=== PATIENT | female | born 1970 | race Two or more races ===

== ENCOUNTER 2024-05-08 11:45 | Inpatient (IN) | payer MEDICAID, OTHER ==
[~2024-05-08] VITALS: Ht 165.1 cm; Wt 77.0 kg
[~2024-05-08 11:45] MED LIST: ASPI81CH59 PO; ATEN-60 PO; ATOR10TA PO; HYDR12.55 PO; INSU1INJ19 SC; METF-371 PO; SEMA2INJ3 SC; SITA100T7 PO
--- NOTE | 2024-05-08 16:28 | ED.PDOC ---
History of Present Illness Chief Complaint: Facial Injury Time Seen by MD: 11:46 Mode of Arrival: Ambulatory Physical Exam General Appearance: Moderate Distress HEENT: Normal ENT Inspection, Pharynx Normal, TMs Normal Neck: Full Range of Motion, Non-Tender, Normal, Normal Inspection Respiratory: Chest Non-Tender, Lungs Clear, No Accessory Muscle Use, No Respiratory Distress, Normal Breath Sounds Cardiovascular: No Edema, No JVD, No Murmur, No Gallop, Normal Peripheral Pulses, Regular Rate/Rhythm Breast Exam: Deferred Gastrointestinal: No Organomegaly, Non Tender, No Pulsatile Mass, Normal Bowel Sounds, Soft Genitalia: Deferred Pelvic: Deferred Rectal: Deferred Extremities: No calf tenderness, Normal capillary refill, Normal inspection, Normal range of motion, Non-tender, No pedal edema Musculoskeletal : Apperance: Normal Neurologic: Alert, No Motor Deficits, No Sensory Deficits Cerebellar Function: NOT DONE Reflexes: NOT DONE Skin: Wounds (Right side of face) Peripheral Pulses: 3+ Radial (R), 3+ Radial (L) Lymphatic: No Adenopathy Was a procedure done? Was a procedure done?: No Differential Dx Considerations may include: Head injury Electrolyte imbalance X-Ray, Labs, Meds, VS Vital Signs Date Time Temp Pulse Resp B/P (MAP) Pulse Ox O2 Delivery O2 Flow Rate FiO2 05/08/24 12:49 98.1 96 18 150/105 (120) 96 Patient alert. Status post fall. Has wound on the face. Vitals stable. Answering all questions. Blood pressure elevated. Was given clonidine. Had symptoms prior to the fall. MRI. Neurology consultation. Explained to the patient. Continue cardiac monitoring. Time of 1ST Reevaluation: 16:26 Reevaluation 1ST: Unchanged Patient Education/Counseling: Diagnosis, Treatment, Prognosis, Need For Follow Up Family Education/Counseling: Need For Follow Up Departure 1 Departure Time of Disposition: 16:27 Impression: Primary Impression: Head injury Qualified Codes: S09.90XA - Unspecified injury of head, initial encounter Additional Impressions: Facial injury Qualified Codes: S09.93XA - Unspecified injury of face, initial encounter Hypertensive urgency Disposition: ADMITTED INPATIENT Admit to: Med Surg Condition: Guarded Critical Care Note Critical Care Time?: Yes (45 min-critical care time only) Critical care comment: Hypertensive head injury Stability Stability form required: No Heart Score Heart Score: Heart Score Response (Comments) Value History N/A 0 EKG N/A 0 Age N/A 0 Risk Factors N/A 0 Troponin N/A 0 Total 0 IESHA FLAHERTY MD May 08, 2024 16:28
--- NOTE | 2024-05-08 16:49 | DVH ---
CT HEAD WITHOUT CONTRAST INDICATION: fall EXAM DATE: 05/08/2024 04:24 PM COMPARISON: None RADIATION DOSE: CTDIvol: 53 mGy, DLP: 852 mGy*cm PROCEDURE: CT scans of the head were obtained from the vertex to the skull base. Sagittal and coronal reconstructions were provided. All CT scans at this medical facility are performed using dose modulation techniques as appropriate t o a performed exam including the following: Automated exposure control was utilized; adjustment of th e MA and/or KV according to patient size; and use of iterative reconstruction technique. FINDINGS: Increased gyri at the median right occipital lobe likely congenital. There is sulcal and ve ntricular prominence. The brain otherwise shows normal morphology and junior-white matter differentiati on, without intracranial hemorrhage, extra-axial fluid collection, mass effect or acute large vessel infarct. The ventricles are normal in size. The basal cisterns are patent. The skull and visible faci al bones are intact. The paranasal sinuses, mastoid air cells and middle ear cavities are well-aerate d. The soft tissues of the scalp are unremarkable. IMPRESSION: No acute intracranial abnormality.
[2024-05-08] MEDS: cloNIDine HCL 0.1 MG TAB PO ONE (16:59)
[2024-05-08 17:03] LABS: Basophils # (auto) 0 10 ^3/uL (0-0.2); Basophils % (auto) 0.6 % (0.0-2.0); Eosinophils # (auto) 0.1 10 ^3/uL (0-0.8); Eosinophils % (auto) 1.7 % (0.0-7.0); Hematocrit 46.6 % (36.0-46.0); Lymphocytes # (auto) 1.6 10 ^3/uL (0.4-5.4); Lymphocytes % (auto) 19.2 % (10.0-50.0); Mean Corpuscular Hemoglobin 29.2 pg (28.0-32.0); Mean Corpuscular Hgb Conc. 34.3 g/dL (32.0-36.0); Mean Corpuscular Volume 85.3 fL (80.0-100.0); Monocytes # (auto) 0.9 10 ^3/uL (0-1.3); Monocytes % (auto) 10.3 % (0.0-12.0); Neutrophils # (auto) 5.9 10 ^3/uL (1.6-8.6); Neutrophils % (auto) 68.2 % (37.0-80.0); Nucleated Red Blood Cells % 0.1 %; Platelet Count (auto) 235 10^3/uL (140-450); Red Blood Cells 5.46 10^6/uL (4.0-5.20); Red Cell Distribution Width 11.9 % (11.8-14.3); White Blood Cell 8.6 10^3/uL (4.4-10.8)
[2024-05-08] MEDS: HYDROcodone-ACET 5/325MG TAB PO ONE (17:06)
[2024-05-08 17:12] LABS: Anion Gap 8 (5-15); Carbon Dioxide 29 mmol/L (20-31)
[2024-05-08 17:17] LABS: BUN/Creatinine Ratio 8.5 (10.0-20.0)
[2024-05-08 17:25] LABS: Blood Urea Nitrogen 7 mg/dL (9-23); Calcium 10.8 mg/dL (8.7-10.4); Chloride 96 mmol/L (98-107); Glucose 205 mg/dL (74-106); Sodium 133 mmol/L (136-145)
[2024-05-08] MEDS ORDERED: ACETAMINOPHEN 325 MG TAB PO PRN (23:15)
--- NOTE | 2024-05-08 23:17 | DVHHPRES ---
History of Present Illness Resident Creating Document: JL NAJERA RESIDENT History of Present Illness Patient is a 54-year-old female with past medical history of diabetes and hypertension, who came s/p fall. According to the patient and granddaughter at bedside, around 10:00 a.m. this morning patient says she felt lightheadedness, lost her balance and fell where she hit her face against a low height concrete wall which resulted in a nosebleed. Subsequently patient's family called the paramedics and brought her to the hospital. Patient denies losing any consciousness, her own insight is that she got up too fast which led to the fall. Patient is A&O x4 at the time of my assessment. On review of systems, patient is complaining of fatigue, chills, rhinorrhea, sore throat and a productive cough. Head CT scan was largely unremarkable. Initial x-ray showed no displaced fractures. Past Medical History Diabetes, Hypertension Past Surgical History Cholecystectomy, section x3 Smoke: No ALCOHOL: none Drugs: None Lives: with Family Review of Systems Constitutional: Yes: Chills, Malaise; No: Fever, Sweats, Weakness, Other Eyes: No: Pain, Vision change, Conjunctivae inflammation, Eyelid inflammation, Other, Redness ENT: Nose discharge, Nose congestion, Throat pain; No: Ear pain, Ear discharge, Nose pain, Mouth pain, Mouth swelling, Throat swelling, Other Respiratory: Cough; No: Dry, Shortness of breath, SOB with excertion, Wheezing, Hemoptysis, Pleuritic Pain, Sputum, Wheezing, Other Cardiovascular: No: Chest Pain, Palpitations, Orthopnea, Paroxysmal Noc. Dyspnea, Edema, Lt Headedness, Other Gastrointestinal: No: Nausea, Vomiting, Abdominal Pain, Diarrhea, Constipation, Melena, Hematochezia, Other Genitourinary: No Dysuria, No Frequency, No Incontinence, No Hematuria, No Retention, No Other Musculoskeletal: No: other, neck pain, shoulder pain, arm pain, back pain, hand pain, leg pain, foot pain Skin: No: Rash, Lesions, Jaundice, Bruising, Other Neurological: No: Weakness, Numbness, Incoordination, Change in speech, Confus ion, Seizures, Other Allergies: Coded Allergies: No Known Drug Allergy (Verified Allergy, Unknown, 05/08/24) Exam Vital Signs Vital Signs Date Time Temp Pulse Resp B/P (MAP) Pulse Ox O2 Delivery O2 Flow Rate FiO2 05/08/24 19:50 89.5 92 16 144/91 (108) 97 89.5 05/08/24 16:31 Room Air General Appearance: Alert, Oriented X3, Cooperative HEENT: Atraumatic, PERRLA, EOMI Respiratory: Normal air movement Cardiovascular: Regular rate, Normal S1, Normal S2 Abdominal: Normal bowel sounds, Soft Extremities: No clubbing, No cyanosis Skin: No rashes, No breakdown, No significant lesion Neuro: Normal speech, Strength at 5/5 X4 ext, Sensation intact Psych/Mental Status: Mental status NL, Mood NL Labs/Xrays Labs Test 05/08/24 22:57 05/08/24 16:42 Range/Units POC Glucose 256 H 70-106 mg/dl White Blood Count 8.6 4.4-10.8 10^3/uL Red Blood Count 5.46 H 4.0-5.20 10^6/uL Hemoglobin 16.0 12.2-16.2 g/dL Hematocrit 46.6 H 36.0-46.0 % Mean Corpuscular Volume 85.3 80.0-100.0 fL Mean Corpuscular Hemoglobin 29.2 28.0-32.0 pg Mean Corpuscular Hemoglobin Concent 34.3 32.0-36.0 g/dL Red Cell Distribution Width 11.9 11.8-14.3 % Platelet Count 235 140-450 10^3/uL Mean Platelet Volume 8.3 6.9-10.8 fL Neutrophils (%) (Auto) 68.2 37.0-80.0 % Lymphocytes (%) (Auto) 19.2 10.0-50.0 % Monocytes (%) (Auto) 10.3 0.0-12.0 % Eosinophils (%) (Auto) 1.7 0.0-7.0 % Basophils (%) (Auto) 0.6 0.0-2.0 % Neutrophils # (Auto) 5.9 1.6-8.6 10 ^3/uL Lymphocytes # (Auto) 1.6 0.4-5.4 10 ^3/uL Monocytes # (Auto) 0.9 0-1.3 10 ^3/uL Eosinophils # (Auto) 0.1 0-0.8 10 ^3/uL Basophils # (Auto) 0 0-0.2 10 ^3/uL Nucleated Red Blood Cells 0.1 % Sodium Level 133 L 136-145 mmol/L Potassium Level 4.0 3.5-5.1 mmol/L Chloride Level 96 L 98-107 mmol/L Carbon Dioxide Level 29 20-31 mmol/L Anion Gap 8 5-15 Blood Urea Nitrogen 7 L 9-23 mg/dL Creatinine 0.82 0.550-1.02 mg/dL Glomerular Filtration Rate Calc 85 >90 mL/min BUN/Creatinine Ratio 8.5 L 10.0-20.0 Serum Glucose 205 H 74-106 mg/dL Calcium Level 10.8 H 8.7-10.4 mg/dL Assessment/Plan Assessment/Plan Presyncope s/p fall Nasal contusion with nosebleed, now stopped - head CT: No acute intracranial abnormality - facial bones x-ray: No radiopaque foreign body in the visualized orbits. No displaced fracture. Normal mineralization and alignment. Scattered maxillary and mandibular teeth have been removed. Overlying soft tissues are intact - acetaminophen 650 mg as needed - ordered carotid Doppler - orthostatic vital signs Type 2 diabetes, insulin dependent A1c 9% Hypertension - insulin Lantus 20 units q.p.m. - atorvastatin 10 mg - amlodipine 5 mg - moderate sliding scale insulin - consistent carb low carb diet DVT prophylaxis: SCDs Goals of care: Full code, discussed for >16 minutes on 10/17/23 Plan discussed with patient Plan discussed with Dr. Solorio Plan discussed with: Patient, Other (Granddaughter, RN) Date of Service: May 08, 2024 Billing Provider: CHESTER LAWSON MD Common Visit Codes: [id number] INP/OBS CARE (HIGH) JL NAJERA RESIDENT May 08, 2024 23:17 CHESTER LAWSON MD May 15, 2024 15:57
[2024-05-09] MEDS: ATORVASTATIN 20 MG TAB PO ONE (00:07)
[2024-05-09] MEDS: ATENOLOL 25 MG TAB PO ONE (00:09)
[2024-05-09] MEDS ORDERED: DEXTROSE (50%) 50ML SYRG IV PRN ×2 (00:15→04:15)
[2024-05-09 00:19] LABS: LDL Cholesterol 88 mg/dL (< 100)
[2024-05-09 00:20] LABS: Cholesterol 148 mg/dL (< 200); HDL Cholesterol 42 mg/dL (40-59)
[2024-05-09 00:21] LABS: Triglycerides 250 mg/dL (< 150)
[2024-05-09 00:25] LABS: Urine Bacteria FEW /hpf (None Seen); Urine Blood Negative /uL (Negative); Urine Clarity Clear (Clear); Urine Color Light-Yellow (Yellow); Urine Protein, UAD Negative (Negative); Urine Specific Gravity 1.008 (1.001-1.035); Urine Squamous Epithelial Cell FEW /hpf (<5); Urine Urobilinogen Normal (Negative); Urine WBC 8 /HPF (0-5)
[2024-05-09 00:27] LABS: Opiate Scree,Urine Neg (NEGATIVE)
[2024-05-09 00:40] LABS: Amphetamine Screen, Urine Neg (NEGATIVE); Barbiturate Scree,Urine Neg (NEGATIVE); Benzodiazephine Screen, Urine Neg (NEGATIVE); Cannabinoid Screen, Urine Neg (NEGATIVE); Cocaine Screen, Urine Neg (NEGATIVE); Phencyclidine Screen, Urine Neg (NEGATIVE)
[2024-05-09] MEDS: INSULIN LANTUS (GLARGINE) 1 /0.01ml (100units/ml) SC SCH (01:08)
--- NOTE | 2024-05-09 01:18 | DVH ---
CLINICAL INDICATION: Fall, facial pain TECHNIQUE: XY FACIAL BONES COMPLETE Comparison: CT head from 05/08/2024 FINDINGS/IMPRESSION: : No radiopaque foreign body in the visualized orbits. No displaced fracture. Normal mineralization and alignment. Scattered maxillary and mandibular teeth have been removed. Overlying soft tissues are intact
[2024-05-09 01:46] VITALS: PULSE 107; RESP 22; O2SAT 95
[2024-05-09 05:19] LABS: Basophils # (auto) 0 10 ^3/uL (0-0.2); Basophils % (auto) 0.6 % (0.0-2.0); Eosinophils # (auto) 0.2 10 ^3/uL (0-0.8); Eosinophils % (auto) 2.8 % (0.0-7.0); Hematocrit 41.3 % (36.0-46.0); Lymphocytes # (auto) 1.6 10 ^3/uL (0.4-5.4); Lymphocytes % (auto) 22.3 % (10.0-50.0); Mean Corpuscular Hemoglobin 29.1 pg (28.0-32.0); Mean Corpuscular Hgb Conc. 33.9 g/dL (32.0-36.0); Mean Corpuscular Volume 85.7 fL (80.0-100.0); Monocytes # (auto) 0.9 10 ^3/uL (0-1.3); Monocytes % (auto) 12.3 % (0.0-12.0); Neutrophils # (auto) 4.4 10 ^3/uL (1.6-8.6); Nucleated Red Blood Cells % 0.1 %; Platelet Count (auto) 197 10^3/uL (140-450); Red Blood Cells 4.82 10^6/uL (4.0-5.20); Red Cell Distribution Width 11.8 % (11.8-14.3); White Blood Cell 7.1 10^3/uL (4.4-10.8)
[2024-05-09 05:28] LABS: Anion Gap 10 (5-15); Carbon Dioxide 27 mmol/L (20-31); Chloride 98 mmol/L (98-107); Potassium 3.6 mmol/L (3.5-5.1)
[2024-05-09 05:29] LABS: Calcium 10.3 mg/dL (8.7-10.4)
[2024-05-09 05:34] LABS: BUN/Creatinine Ratio 15.4 (10.0-20.0); Blood Urea Nitrogen 10 mg/dL (9-23)
[2024-05-09 05:36] LABS: Glucose 196 mg/dL (74-106); Sodium 135 mmol/L (136-145)
[2024-05-09] MEDS ORDERED: InsuLIN REG 1unit/0.01ml Soln (100units/ml) SC SCH (06:00)
[2024-05-09] MEDS ORDERED: ACCU-CHEK COMFORT CURVE STRIP VI SCH (06:00)
[2024-05-09 07:31] VITALS: PULSE 110; RESP 15; O2SAT 94
[2024-05-09] MEDS: ACCU-CHEK COMFORT CURVE STRIP VI SCH (08:08)
[2024-05-09] MEDS: InsuLIN REG 1unit/0.01ml Soln (100units/ml) SC SCH (08:09)
[2024-05-09] MEDS: amLODIPine BESYLATE 5 MG TAB PO SCH (08:11)
[2024-05-09 09:35] VITALS: TEMP 98.2
[2024-05-09] MEDS ORDERED: ATENOLOL 25 MG TAB PO SCH (10:00)
[2024-05-09] MEDS: SODIUM CHLORIDE 0.9% 500 ML IV ONE ×2 (10:03→13:04)
--- NOTE | 2024-05-09 10:03 | DVH ---
CAROTID ARTERIAL DOPPLER CLINICAL HISTORY: presyncope TECHNIQUE: Doppler study of bilateral carotid/vertebral arteries were performed. Comparison: None FINDINGS: There are scattered nonocclusive atheromatous plaques throughout the bilateral common carotid arterie s, internal carotid arteries and carotid bulbs. The bilateral common carotid, external and internal c arotid arteries appear patent without hemodynamically significant stenosis. The spectral wave forms and peak systolic velocities are within normal limits. Antegrade flow is present within the vertebral arteries with appropriate velocities and waveforms. Right ICA/CCA PSV ratio = 1.2. Left ICA/CCA PSV ratio = 1.1 . IMPRESSION: 1. No hemodynamically significant stenosis within the carotid arteries. HS:Y
--- NOTE | 2024-05-09 11:03 | DVHSR ---
APPROVED REPORT EXAM: Two-dimensional and M-mode echocardiogram with Doppler and color Doppler. Blood Pressure: 138/94 mmHg INDICATION Presyncope RISK FACTORS Height: 5'5", Weight: 169 DIMENSIONS LVDd3.4 (3.8-5.7cm)LA (2D)4.7 (1.9-4.0cm)Aortic Root (2.0-3.7cm) LVDs2.3 (2.5-4.0cm)LA (MM) (1.9-4.0cm)Aortic Cusp Exc (1.5-2.0cm) EF (%) 75.0 (55-70%)Rt. Atrium (1.9-4.0cm)Asc. Aorta cm Mitral Valve MitralMitral Stenosis E/A ratio0.02D MVAcm2 Aortic Valve Aortic ValveAortic Stenosis V10.98m/Heron Mean GR.11mmHg V22.65m/Heron Peak GR.29mmHg LVOT Diameter2.0 (1.8-2.4cm)Doppler AVA1.16cm2 LEFT VENTRICLE The left ventricle is of normal size. Wall thickness is not well assessed. Ejection fraction is est imated at 75-80%. There is no regional wall motion abnormalities. Diastolic function is indetermina te. RIGHT VENTRICLE Not well visualized. ATRIA The left atrium is mildly dilated in size. Right atrium is not visualized. Intra-atrial septum is n ot well visualized. MITRAL VALVE Likely normal in structure and function. PULMONIC VALVE Not visualized. TRICUSPID VALVE Not well visualized. AORTIC VALVE Not well visualized. Likely normal function. GREAT VESSELS The aortic root and proximal ascending aorta not well visualized. PERICARDIAL EFFUSION No evidence of significant pericardial effusion. IVC is not visualized. Other Information Quality : Technically LimitedRhythm : Technically limited study due to body habitus and pt sitting up. Conclusion The study is very technically limited. Normal left ventricular size with hyperdynamic systolic function. Ejection fraction is estimated at 75-80%. There is mild mid cavitary dynamic obstruction of the left ventricle. The right ventricle is not visualized. Study is nondiagnostic to assess for valvular disease. PA systolic pressure isn't adequately estimated.
[2024-05-09 13:00] VITALS: BP 140/95; PULSE 94; RESP 18; O2SAT 97
--- NOTE | 2024-05-09 19:06 | DVHDSRES ---
Discharge Summary Date of Admission Resident Creating Document: DENIA ROSENBERG RESIDENT May 08, 2024 at 23:15 Date of Discharge: May 09, 2024 Admitting Diagnosis Presyncope s/p fall Nasal contusion with nosebleed, now stopped Type 2 diabetes, insulin dependent A1c 9% Hypertension Wounds: none Labs/Diagnostic Data: Laboratory Results Test 05/09/24 12:26 05/09/24 04:33 05/08/24 23:51 05/08/24 23:50 POC Glucose 235 mg/dl (70-106) White Blood Count 7.1 10^3/uL (4.4-10.8) Red Blood Count 4.82 10^6/uL (4.0-5.20) Hemoglobin 14.0 g/dL (12.2-16.2) Hematocrit 41.3 % (36.0-46.0) Mean Corpuscular Volume 85.7 fL (80.0-100.0) Mean Corpuscular Hemoglobin 29.1 pg (28.0-32.0) Mean Corpuscular Hemoglobin Concent 33.9 g/dL (32.0-36.0) Red Cell Distribution Width 11.8 % (11.8-14.3) Platelet Count 197 10^3/uL (140-450) Mean Platelet Volume 8.6 fL (6.9-10.8) Neutrophils (%) (Auto) 62.0 % (37.0-80.0) Lymphocytes (%) (Auto) 22.3 % (10.0-50.0) Monocytes (%) (Auto) 12.3 % (0.0-12.0) Eosinophils (%) (Auto) 2.8 % (0.0-7.0) Basophils (%) (Auto) 0.6 % (0.0-2.0) Neutrophils # (Auto) 4.4 10 ^3/uL (1.6-8.6) Lymphocytes # (Auto) 1.6 10 ^3/uL (0.4-5.4) Monocytes # (Auto) 0.9 10 ^3/uL (0-1.3) Eosinophils # (Auto) 0.2 10 ^3/uL (0-0.8) Basophils # (Auto) 0 10 ^3/uL (0-0.2) Nucleated Red Blood Cells 0.1 % Sodium Level 135 mmol/L (136-145) Potassium Level 3.6 mmol/L (3.5-5.1) Chloride Level 98 mmol/L (98-107) Carbon Dioxide Level 27 mmol/L (20-31) Anion Gap 10 (5-15) Blood Urea Nitrogen 10 mg/dL (9-23) Creatinine 0.65 mg/dL (0.550-1.02) Glomerular Filtration Rate Calc 105 mL/min (>90) BUN/Creatinine Ratio 15.4 (10.0-20.0) Serum Glucose 196 mg/dL (74-106) Calcium Level 10.3 mg/dL (8.7-10.4) Thyroid Stimulating Hormone (TSH) 0.96 uIU/mL (0.55-4.78) Hemoglobin A1c 9.0 % A1C (<5.7) Triglycerides Level 250 mg/dL (< 150) Cholesterol Level 148 mg/dL (< 200) LDL Cholesterol 88 mg/dL (< 100) HDL Cholesterol 42 mg/dL (40-59) Vitamin B12 Level 305 pg/mL (211-911) Folic Acid 22.23 ng/mL (>5.38) Urine Color Light-yellow (Yellow) Urine Clarity Clear (Clear) Urine pH 6.0 (5.0-9.0) Urine Specific [place] 1.008 (1.001-1.035) Urine Protein Negative (Negative) Urine Ketones Negative (Negative) Urine Blood Negative /uL (Negative) Urine Nitrite Negative (Negative) Urine Bilirubin Negative (Negative) Urine Urobilinogen Normal mg/dL (Negative) Urine Leukocyte Esterase 2+ /uL (Negative) Urine RBC 1 /hpf (0 - 4) Urine Microscopic WBC 8 /HPF (0-5) Urine Squamous Epithelial Cells Few /hpf (<5) Urine Bacteria Few /hpf (None Seen) Urine Glucose 3+ mg/dL (Normal) Urine Opiates Screen Neg (NEGATIVE) Urine Fentanyl Screen Neg (NEGATIVE) Urine Barbiturates Screen Neg (NEGATIVE) Urine Phencyclidine Screen Neg (NEGATIVE) Urine Amphetamines Screen Neg (NEGATIVE) Urine Benzodiazepines Screen Neg (NEGATIVE) Urine Cocaine Screen Neg (NEGATIVE) Urine Cannabinoids Screen Neg (NEGATIVE) Other Laboratory Tests 05/09/24 04:33 Brief Hx & Hospital Course: HPI Patient is a 54-year-old female with past medical history of diabetes and hypertension, who came s/p fall. According to the patient and granddaughter at bedside, around 10:00 a.m. this morning patient says she felt lightheadedness, lost her balance and fell where she hit her face against a low height concrete wall which resulted in a nosebleed. Subsequently patient's family called the paramedics and brought her to the hospital. Patient denies losing any consciousness, her own insight is that she got up too fast which led to the fall. Patient is A&O x4 at the time of my assessment. On review of systems, patient is complaining of fatigue, chills, rhinorrhea, sore throat and a productive cough. Head CT scan was largely unremarkable. Initial x-ray showed no displaced fractures. Past Medical History: Diabetes, Hypertension Past Surgical History: Cholecystectomy, section x3 Hospital course Patient admitted to the hospital with a chief complaint of fall. Patient reported feeling dizzy after she tried to fern picker a plant bending down and fell down but no loss of consciousness. Head CT without contrast showed no intracranial abnormality,, facial bone x-ray showed no displaced fracture, normal alignment. Patient likely was dehydrated and had orthostatic hypotension which caused the dizziness. While in the hospital patient was given IV fluid. Reported no dizziness on walking after being hydrated. Patient was discharged in stable condition to home. Patient had elevated HbA1c at 9%, recommended to continue on low carbohydrate diet, strict compliance with the medication and follow up with the PCP in 1 week. Consults/Reason for consult None Operations or Procedures Echocardiogram Conclusion The study is very technically limited. Normal left ventricular size with hyperdynamic systolic function. Ejection fraction is estimated at 75-80%. There is mild mid cavitary dynamic obstruction of the left ventricle. The right ventricle is not visualized. Study is nondiagnostic to assess for valvular disease. PA systolic pressure isn't adequately estimated. Head CT without contrast FINDINGS: Increased gyri at the median right occipital lobe likely congenital. There is sulcal and ventricular prominence. The brain otherwise shows normal morphology and junior-white matter differentiation, without intracranial hemorrhage, extra-axial fluid collection, mass effect or acute large vessel infarct. The ventricles are normal in size. The basal cisterns are patent. The skull and visible facial bones are intact. The paranasal sinuses, mastoid air cells and middle ear cavities are well-aerated. The soft tissues of the scalp are unremarkable. IMPRESSION: No acute intracranial abnormality. Facial bones x-ray FINDINGS/IMPRESSION: : No radiopaque foreign body in the visualized orbits. No displaced fracture. Normal mineralization and alignment. Scattered maxillary and mandibular teeth have been removed. Overlying soft tissues are intact Carotid Doppler FINDINGS: There are scattered nonocclusive atheromatous plaques throughout the bilateral common carotid arteries, internal carotid arteries and carotid bulbs. The bilateral common carotid, external and internal carotid arteries appear patent without hemodynamically significant stenosis. The spectral wave forms and peak systolic velocities are within normal limits. Antegrade flow is present within the vertebral arteries with appropriate velocities and waveforms. Right ICA/CCA PSV ratio = 1.2. Left ICA/CCA PSV ratio = 1.1 . IMPRESSION: No hemodynamically significant stenosis within the carotid arteries. Condition at Discharge: Good Final Diagnosis/Problems List presyncope orthostatic hypotension likely d/t dehydration Mechanical fall with nasal contusion Uncontrolled type 2 diabetes mellitus Discharge Disposition: Home Discharge Instruct/Medications Diet: Regular Activity: No Restrictions, As Tolerated Discharge Statement: "Patient was advised to return to the ER or call 911 if any headaches, dizziness, shortness of breath, chest pain, abdominal pain, bleeding, fevers, or worsening of medical condition. Patient was counseled about treatment plan, medications, possible side effects, patientverbalized understanding. All questions were answered to the best of my ability. This discharge took greater then 30 minutes in planning, reviewing documentation, counseling the patient, and discussing with other team members." ASSESSMENT ASSESSMENT Assessment orthostatic hypotension 2/2 dehydration Date of Service: May 09, 2024 Billing Provider: MARTINA BRIZUELA MD Common Visit Codes: [id number]-EAH/OBS DISCH DAY >30min DENIA ROSENBERG RESIDENT May 09, 2024 19:06 MARTINA BRIZUELA MD May 13, 2024 09:00
[2024-05-09] MEDS ORDERED: ATORVASTATIN 20 MG TAB PO SCH (22:00)
[2024-05-09] MEDS ORDERED: INSULIN LANTUS (GLARGINE) 1 /0.01ml (100units/ml) SC SCH (22:00)
[2024-05-10 08:06] LABS: RPR Non Reactive (Non Reactive)
== END 2024-05-09 14:00 | disposition home or self-care (01) | DRG 422 ==
LOC: ER 12:01 → TELE 23:15
PROVIDERS: ADMIT Student in an Organized Health Care Education/Training Program
DX: E86.0 Dehydration (principal); S09.8XXA Other specified injuries of head, initial encounter; E11.9 Type 2 diabetes mellitus without complications; S00.33XA Contusion of nose, initial encounter; I10 Essential (primary) hypertension; I95.1 Orthostatic hypotension; I16.0 Hypertensive urgency; Z79.4 Long term (current) use of insulin; Z79.899 Other long term (current) drug therapy; W18.39XA Other fall on same level, initial encounter; Y93.89 Activity, other specified; Y92.89 Other specified places as the place of occurrence of the external cause; Y99.8 Other external cause status
CPT/HCPCS: 36415; 70140; 70450; 80048; 80061; 80307; 81001; 82607; 82746; 82962; 83036; 84443; 85025; 86592; 87086; 93306; 93886; G0378; J1815